=== PATIENT | male | born 2000 | race Two or more races ===

== ENCOUNTER 2025-02-10 05:41 | Emergency (ER) | payer MEDICAID, OTHER ==
[~2025-02-10] VITALS: Ht 167.6 cm; Wt 69.2 kg
--- NOTE | 2025-02-10 07:44 | ED.PDOC ---
GI ASSESSMENT HPI Comments 24 year old male presents to the ED with chief complaint of abdominal pain. Patient relays that he has been drinking ETOH heavily for the past 2 days and since then has been experiencing abdominal pain with associated nausea, vomiting, and streaks of blood in vomit. Patient states he drank a variety of different alcohol he had on hand. Patient denies any fever, chills, diarrhea, chest pain, SOB, cough, or headache. Chief Complaint: Nausea/Vomiting Time Seen by MD: 07:42 Reviewed Notes: Nurses Notes, Medications, Allergies Allergies: Coded Allergies: NO KNOWN ALLERGIES (Unverified , 02/10/25) Information Source: Patient Mode of Arrival: Ambulatory Timing: Days Duration: Since onset Prehospital treatment: None Quality: Aching Vomitus: Streaking Blood Stool: Normal Severity: Moderate Recent: None Recent Hx of: None Pain Location: Epigastric Modifying Factors: Nothing Associated sign and symptoms: Nausea, Vomiting, Hematemesis, Abdominal Pain Past Medical History PAST MEDICAL HISTORY: Asthma Surgical History: Denies all surgeries Family History Family History: Reviewed,noncontributory to illness Social History Smoker: Non-Smoker Alcohol: Heavy Drugs: Denies Drug Use Lives In: Home Constitutional: denies: chills, diaphoresis, fatigue, fever, malaise, sweats, weakness, others EENTM: denies: blurred vision, double vision, ear bleeding, ear discharge, ear drainage, ear pain, ear ringing, eye pain, eye redness, hearing loss, mouth pain, mouth swelling, nasal discharge, nose bleeding, nose congestion, nose pain, photophobia, tearing, throat pain, throat swelling, voice changes, others Respiratory: denies: cough, hemoptysis, orthopnea, SOB at rest, shortness of breath, SOB with excertion, stridor, wheezing, others Cardiovascular: denies: chest pain, dizzy spells, diaphoresis, Dyspnea on exertion, edema, irregular heart beat, left arm pain, lightheadedness, palpitations, PND, syncope, others Gastrointestinal: reports: abdominal pain, hematemesis, nausea, vomiting; denies: abdomen distended, blood streaked bowels, constipated, diarrhea, dysphagia, difficulty swallowing, melena, poor appetite, poor fluid intake, rectal bleeding, rectal pain, others Genitourinary: denies: burning, dysuria, flank pain, frequency, hematuria, incontinence, penile discharge, penile sore, pain, testicle pain, testicle swelling, urgency, others Neurological: denies: dizziness, fainting, headache, left sided numbness, left sided weakness, numbness, paresthesia, pre-existing deficit, right sided numbness, right sided weakness, seizure, speech problems, tingling, tremors, weakness, others Musculoskeletal: denies: back pain, gout, joint pain, joint swelling, muscle pain, muscle stiffness, neck pain, others Integumetry: denies: bruises, change in color, change in hair/nails, dryness, laceration, lesions, lumps, rash, wounds, others Allergic/Immunocompromised: denies: Difficulty Healing, Frequent Infections, Hives, Itching, others Hematologic/Lymphatic: denies: anemia, blood clots, easy bleeding, easy bruising, swollen glands, others Endocrine: denies: excessive hunger, excessive sweating, excessive thirst, excessive urination, flushing, intolerance to cold, intolerance to heat, unexplained weight gain, unexplained weight loss, others Psychiatric: denies: anxiety, bipolar disorder, depression, hopeless, panic disorder, schizophrenia, sleepless, suicidal, others All Other Systems: Reviewed and Negative Physical Exam General Appearance: Moderate Distress, Normal HEENT: Normal ENT Inspection, PERRL/EOMI Neck: Full Range of Motion, Non-Tender, Normal, Normal Inspection Respiratory: Chest Non-Tender, Lungs Clear, No Accessory Muscle Use, No Respiratory Distress, Normal Breath Sounds Cardiovascular: No Edema, No JVD, No Murmur, No Gallop, Normal Peripheral Pulses, Regular Rate/Rhythm, Tachycardia Breast Exam: Deferred Gastrointestinal: Epigastric, No Organomegaly, No Pulsatile Mass, Normal Bowel Sounds, Soft, Tenderness Genitalia: Deferred Pelvic: Deferred Rectal: Deferred Extremities: No calf tenderness, Normal capillary refill, Normal inspection, Normal range of motion, Non-tender, No pedal edema Musculoskeletal : Apperance: Normal Neurologic: Alert, 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 Was a procedure done?: No GI differential Dx Differential Diagnosis: Esophagitis, Gastritis/PUD, Gastroenteritis, Pancreatitis, UTI, Dehydration, Drug toxicity, Electrolyte Imbalance, Food Poisoning, Bacterial, Viral, Anemia Other Differential Diagnosis ETOH poisoning X-Ray, Labs, Meds, VS Vital Signs Date Time Temp Pulse Resp B/P (MAP) Pulse Ox O2 Delivery O2 Flow Rate FiO2 02/10/25 08:18 101 18 95 Room Air* 0 21 02/10/25 08:16 97.7 101 18 128/87 (101) 95 97.7 02/10/25 06:00 98.6 123 18 140/90 (107) 94 98.6 Lab Test 02/10/25 08:04 02/10/25 06:10 Range/Units White Blood Count 7.3 4.4-10.8 10^3/uL Red Blood Count 5.70 4.5-5.90 10^6/uL Hemoglobin 17.8 H 13.5-17.5 g/dL Hematocrit 50.0 41.0-53.0 % Mean Corpuscular Volume 87.6 80.0-100.0 fL Mean Corpuscular Hemoglobin 31.2 28.0-32.0 pg Mean Corpuscular Hemoglobin Concent 35.6 32.0-36.0 g/dL Red Cell Distribution Width 12.7 11.8-14.3 % Platelet Count 338 140-450 10^3/uL Mean Platelet Volume 8.6 6.9-10.8 fL Neutrophils (%) (Auto) 65.5 37.0-80.0 % Lymphocytes (%) (Auto) 25.5 10.0-50.0 % Monocytes (%) (Auto) 7.5 0.0-12.0 % Eosinophils (%) (Auto) 1.0 0.0-7.0 % Basophils (%) (Auto) 0.5 0.0-2.0 % Neutrophils # (Auto) 4.8 1.6-8.6 10 ^3/uL Lymphocytes # (Auto) 1.9 0.4-5.4 10 ^3/uL Monocytes # (Auto) 0.5 0-1.3 10 ^3/uL Eosinophils # (Auto) 0.1 0-0.8 10 ^3/uL Basophils # (Auto) 0 0-0.2 10 ^3/uL Nucleated Red Blood Cells 1.2 % Sodium Level 138 136-145 mmol/L Potassium Level 3.6 3.5-5.1 mmol/L Chloride Level 99 98-107 mmol/L Carbon Dioxide Level 24 20-31 mmol/L Anion Gap 15 5-15 Blood Urea Nitrogen < 5 L 9-23 mg/dL Creatinine 0.77 0.700-1.30 mg/dL Glomerular Filtration Rate Calc 128 >90 mL/min BUN/Creatinine Ratio 6.5 L 10.0-20.0 Serum Glucose 104 74-106 mg/dL Calcium Level 9.5 8.7-10.4 mg/dL Magnesium Level 2.7 H 1.6-2.6 mg/dL Total Bilirubin 0.3 0.2-1.0 mg/dL Aspartate Amino Transferase (AST) 32 13-40 U/L Alanine Aminotransferase (ALT) 44 H 7-40 U/L Alkaline Phosphatase 114 46-116 U/L Total Protein 8.9 H 5.7-8.2 g/dL Albumin 5.6 H 3.2-4.8 g/dL Urine Color Colorless Yellow Urine Clarity Clear Clear Urine pH 5.5 5.0-9.0 Urine Specific [place] 1.004 1.001-1.035 Urine Protein Negative Negative Urine Ketones Negative Negative Urine Blood Negative Negative /uL Urine Nitrite Negative Negative Urine Bilirubin Negative Negative Urine Urobilinogen Normal Negative mg/dL Urine Leukocyte Esterase Negative Negative /uL Urine RBC <1 0 - 3 /hpf Urine Microscopic WBC 1 0-3 /HPF Urine Squamous Epithelial Cells None seen <5 /hpf Urine Bacteria Few H None Seen /hpf Urine Glucose 4+ H Normal mg/dL Current Medications Medications (Trade) Dose Ordered Sig/Ben Route Start Time Stop Time Status Last Admin Sodium Chloride 1,000 ml @ 1,000 mls/hr Q1H ONCE IV 02/10/25 08:00 02/10/25 08:59 DC 02/10/25 09:13 Ondansetron HCl (Zofran) 4 mg ONCE ONCE IV 02/10/25 08:00 02/10/25 08:01 DC 02/10/25 09:13 Pantoprazole Sodium (Protonix Tablet) 40 mg ONCE ONCE PO 02/10/25 08:00 02/10/25 08:01 DC 02/10/25 09:13 X-Ray, Labs, Meds, VS Comment Course in the emergency department eventful patient had the binge drinking for the past two days and came in feeling not well his blood pressure is 140/90 in his heart rate is 123 he has a history of asthma no past surgical history use an inhaler CBC is normal Urine shows 4+ glucose CMP normal Blood sugar 104 Magnesium 2.7 Patient felt better after being hydrated but then left AMA not waiting for the rest of the workup Time of 1ST Reevaluation: 08:42 Reevaluation 1ST: Unchanged Patient Education/Counseling: Diagnosis, Treatment Family Education/Counseling: No Family Present Departure 1 Departure Time of Disposition: 10:43 Impression: Primary Impression: Alcoholic gastritis with bleeding Qualified Codes: K29.21 - Alcoholic gastritis with bleeding Additional Impressions: Hypertension Qualified Codes: I10 - Essential (primary) hypertension History of asthma Disposition: 07 LEFT AGAINST MEDICAL ADVICE Condition: Fair Additional Instructions: Drinking push fluids and follow up with your PCP e-Prescriptions Aluminum Hydroxide-Mag Carb (Gaviscon Extra Strength) 1 Chw Chw 1 CHW PO QID for 10 Days, #60 TAB.CHEW Prov: HUEY HEARN MD 02/10/25 Omeprazole (Gnp Omeprazole) 20 Mg Tab 1 TAB PO BID, #90 TAB 1 Refill Prov: HUEY HEARN MD 02/10/25 Discharged With: Self Critical Care Note Critical Care Time?: No Stability Stability form required: No Heart Score Heart Score: Heart Score Response (Comments) Value History N/A 0 EKG N/A 0 Age <45 0 Risk Factors No known risk factors 0 Troponin N/A 0 Total 0 I personally scribed for HUEY HEARN MD ([email or web address]) on 02/10/25 at 07:44. Electronically submitted by Yakov Yap ([email or web address]). HUEY HEARN MD February 10, 2025 07:44
[2025-02-10 08:07] LABS: Urine Bacteria FEW /hpf (None Seen); Urine Blood Negative /uL (Negative); Urine Clarity Clear (Clear); Urine Color Colorless (Yellow); Urine Protein, UAD Negative (Negative); Urine Specific Gravity 1.004 (1.001-1.035); Urine Squamous Epithelial Cell None Seen /hpf (<5); Urine Urobilinogen Normal (Negative); Urine WBC 1 /HPF (0-3); Urine pH 5.5 (5.0-9.0)
[2025-02-10 08:16] VITALS: BP 128/87; TEMP 97.7
[2025-02-10 08:17] LABS: Basophils # (auto) 0 10 ^3/uL (0-0.2); Eosinophils # (auto) 0.1 10 ^3/uL (0-0.8); Lymphocytes # (auto) 1.9 10 ^3/uL (0.4-5.4); Monocytes # (auto) 0.5 10 ^3/uL (0-1.3); Red Cell Distribution Width 12.7 % (11.8-14.3)
[2025-02-10 08:18] VITALS: PULSE 101; RESP 18; O2SAT 95
[2025-02-10 08:19] LABS: Basophils % (auto) 0.5 % (0.0-2.0); Hemoglobin 17.8 g/dL (13.5-17.5); Lymphocytes % (auto) 25.5 % (10.0-50.0); Mean Corpuscular Hemoglobin 31.2 pg (28.0-32.0); Mean Corpuscular Hgb Conc. 35.6 g/dL (32.0-36.0); Mean Corpuscular Volume 87.6 fL (80.0-100.0); Monocytes % (auto) 7.5 % (0.0-12.0); Neutrophils # (auto) 4.8 10 ^3/uL (1.6-8.6); Neutrophils % (auto) 65.5 % (37.0-80.0); Nucleated Red Blood Cells % 1.2 %; Platelet Count (auto) 338 10^3/uL (140-450); White Blood Cell 7.3 10^3/uL (4.4-10.8)
[2025-02-10 08:37] LABS: Alkaline Phosphatase 114 U/L (46-116); Anion Gap 15 (5-15); Aspartate Aminotransferase 32 U/L (13-40); Calcium 9.5 mg/dL (8.7-10.4); Carbon Dioxide 24 mmol/L (20-31); Chloride 99 mmol/L (98-107); Glucose 104 mg/dL (74-106); Potassium 3.6 mmol/L (3.5-5.1); Sodium 138 mmol/L (136-145)
[2025-02-10 08:38] LABS: Bilirubin, Total 0.3 mg/dL (0.2-1.0)
[2025-02-10 08:46] LABS: Alanine Aminotransferase 44 U/L (7-40); Albumin 5.6 g/dL (3.2-4.8); BUN/Creatinine Ratio 6.5 (10.0-20.0); Blood Urea Nitrogen < 5 mg/dL (9-23); Magnesium 2.7 mg/dL (1.6-2.6); Total Protein 8.9 g/dL (5.7-8.2)
[2025-02-10] MEDS: PANTOPRAZOLE 40 MG TAB PO ONE (09:13)
[2025-02-10] MEDS: ONDANSETRON HCL 4 MG/2 ML VIAL IV ONE (09:13)
[2025-02-10] MEDS: SODIUM CHLORIDE 0.9% 1,000 ML IV ONE (09:13)
[2025-02-10] MEDS ORDERED: ALUMCHW6 PO (10:46)
[2025-02-10] MEDS ORDERED: OMEP20TA PO (10:46)
== END 2025-02-10 10:07 | disposition left against medical advice (07) ==
LOC: ER 05:41
DX: K29.21 Alcoholic gastritis with bleeding (principal); I10 Essential (primary) hypertension; J45.909 Unspecified asthma, uncomplicated
CPT/HCPCS: 36415; 80053; 81001; 83735; 85025; 96361; 96374; 99283; J2405; J7030